=== PATIENT | female | born 1950 | race Caucasian/White ===

== ENCOUNTER 2024-10-29 07:42 | Day surgery (SDC) | payer MEDICARE, OTHER ==
[~2024-10-29] VITALS: Ht 152.4 cm; Wt 86.1 kg
[~2024-10-29 07:42] MED LIST: ACET-1349 PO; AMLO1TAB24 PO; ASPI81TA26 PO; ATOR80TA59 PO; AZEL1SPR3 NARES; CLOP75TA2 PO; LOSA50TA28 PO; METO50TA7 PO
[2024-10-29] MEDS: NS (Normal Saline) 0.9% 1,000 ML IV SCH (08:32)
[2024-10-29] MEDS ORDERED: LIDOCAINE 2% 100MG/5ML SDV (FOR ANES.) As Ordered ONE (09:10)
[2024-10-29] MEDS ORDERED: ONDANSETRON 4MG 2ML VIAL As Ordered ONE (09:10)
[2024-10-29] MEDS ORDERED: fentaNYL 100 MCG/2 ML INJECTION As Ordered ONE (09:10)
[2024-10-29] MEDS ORDERED: propofoL 200 MG/20 ML VIAL As Ordered ONE (09:10)
[2024-10-29] MEDS: ceFAZolin SOD 2 GM in IV 1 EA IV ONE (09:28)
[2024-10-29] MEDS ORDERED: ACETAMINOPHEN 1000MG/100ML IV BAG As Ordered ONE (09:43)
[2024-10-29] MEDS ORDERED: ePHEDrine SULFATE 25 MG/5 ML(5MG/ML) SYRINGE As Ordered ONE (09:43)
[2024-10-29] MEDS: ISOVUE-300 61% 100ML VIAL As Ordered ONE (09:55)
[2024-10-29] MEDS ORDERED: MACR100C43 PO (10:19)
[2024-10-29] MEDS ORDERED: PYRI1TAB5 PO (10:19)
[2024-10-29] MEDS ORDERED: OXYB5TAB14 PO (10:19)
[2024-10-29 10:58] VITALS: BP 190/77; TEMP 96.9; O2SAT 94
== END 2024-10-29 11:29 | disposition home or self-care (01) ==
LOC: M SDC 07:42
PROVIDERS: ATTEND Urology
DX: N20.1 Calculus of ureter (principal); I25.10 Atherosclerotic heart disease of native coronary artery without angina pectoris; I10 Essential (primary) hypertension; J44.9 Chronic obstructive pulmonary disease, unspecified; I73.9 Peripheral vascular disease, unspecified; E78.00 Pure hypercholesterolemia, unspecified; I25.2 Old myocardial infarction; Z79.899 Other long term (current) drug therapy; Z79.02 Long term (current) use of antithrombotics/antiplatelets; Z79.82 Long term (current) use of aspirin; Z95.5 Presence of coronary angioplasty implant and graft; Z87.891 Personal history of nicotine dependence; Z90.710 Acquired absence of both cervix and uterus
CPT/HCPCS: 52356; 76000; 82365; C1769; C2617; J0131; J0690; J1100; J2405; J3010; Q9967